=== PATIENT | male | born 1975 | race Caucasian/White ===

== ENCOUNTER → 2017-07-20 | Outpatient (CLI) | payer OTHER ==
[~2017-07-20] MED LIST: ALLERGY10 M2 PO; ALLOPURINOL 10100 M1 PO; ALLOPURINOL 10100 M3 PO; AUGMENTIN 875875 M1; CENTRUM SILVER1 EAC2 PO; CIPROFLOXACIN500 M1 PO; DETROL LA4 MG; DOXYCYCLINE 10100 MG PO; FLOMAX PO; HYDROCHLOROTHIA25 M1 PO; HYDROCODON-ACE1 EAC5; HYDROCODONE-AP1 EAC6 PO; KEFLEX500 MG PO; LORTAB 5 MG/5001 TA1 PO; MULTIPLE VITAM1 EAC1 PO; ONDANSETRON HCL4 M2 PO; PERCOCET 5-3251 EACH PO; PERCOCET 7.5-31 EACH PO; PHENERGAN 25 MG25 MG PO; PREDNISONE 10 M10 MG PO; PREDNISONE 20 M20 M1 PO; ULTRAM 50MG TAB50 MG PO; VITAMIN C100 M1 PO; ZANTAC 150MG T150 M1 PO; ZOFRAN4 MG PO
[2017-07-22 03:14] LABS: GLYCOHEMOGLOBIN (HGB A1C) 5.2 % (4.8-5.6)
== END ==
LOC: M.LAB 15:36
PROVIDERS: Family Medicine
DX: I10 Essential (primary) hypertension (principal); K76.0 Fatty (change of) liver, not elsewhere classified; R53.83 Other fatigue; R00.1 Bradycardia, unspecified

== ENCOUNTER → 2017-11-18 | Outpatient (CLI) | payer OTHER ==
[2017-11-18 16:27] LABS: CREATININE 1.2 mg/dL (0.6-1.3)
== END ==
LOC: M.LAB 14:00 → M.CT 17:00
PROVIDERS: Nurse Practitioner Family
DX: C64.9 Malignant neoplasm of unspecified kidney, except renal pelvis (principal); K86.9 Disease of pancreas, unspecified; K76.0 Fatty (change of) liver, not elsewhere classified; Z98.890 Other specified postprocedural states

== ENCOUNTER 2017-12-02 12:29 | Emergency (ER) | payer OTHER ==
[~2017-12-02] VITALS: Ht 188 cm; Wt 154.2 kg
[~2017-12-02 12:29] MED LIST changes: -HYDROCODONE-AP1 EAC6 PO
[2017-12-02 13:06] LABS: HEMATOCRIT 44.3 % (42.0-52.0); HEMOGLOBIN 15.1 gm/dL (14.0-18.0); MCH 31.4 pg (26.0-34.0); MCV 92.4 fL (80.0-100.0); MPV 8.3 fl. (7.2-11.1); NUCLEATED RBCS 0 /100WBC; PLATELET COUNT* 201 thou/uL (150-400); RBC 4.79 mil/uL (4.50-6.00); RDW-CV 14.1 % (10.5-14.5); WBC 9.9 thou/uL (4.0-11.0)
[2017-12-02 13:12] LABS: ANION GAP 7 mmol/L (7-16); BUN 18 mg/dL (7-18); CALCIUM 8.8 mg/dL (8.5-10.1); CHLORIDE 103 mmol/L (98-107); CO2 30 mmol/L (21-32); CREATININE 1.2 mg/dL (0.6-1.3); GLUCOSE 93 mg/dL (70-99); POTASSIUM 3.8 mmol/L (3.5-5.1); SODIUM 140 mmol/L (136-145)
[2017-12-02 13:19] LABS: ALBUMIN 3.9 g/dL (3.4-5.0); ALKALINE PHOSPHATASE 112 U/L (46-116); LIPASE 107 U/L (73-393); SGOT 36 U/L (15-37); SGPT 64 U/L (30-65); TOTAL PROTEIN 7.6 g/dL (6.4-8.2); TROPONIN-I LEVEL <0.06 ng/mL (<0.06)
[2017-12-02 13:33] LABS: ABSOLUTE LYMPHOCYTES 1.1 thou/uL (0.8-5.3); ABSOLUTE MONOCYTES 0.5 thou/uL (0.0-1.2); ABSOLUTE NEUTROPHILS 8.3 thou/uL (1.6-8.1)
[2017-12-02 13:34] LABS: PLATELET ESTIMATE ADEQUATE
[2017-12-02] MEDS ORDERED: HYDROCODONE-AP1 EAC6 PO (13:58)
[2017-12-02 14:11] VITALS: BP 117/63
--- NOTE | 2017-12-05 11:27 | EKG ---
[place] [address] ELECTROCARDIOGRAM REPORT Name: KIMBERLYPANROSHAN 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
== END 2017-12-02 14:12 | disposition home or self-care (01) ==
LOC: M.ERS 12:29
PROVIDERS: Emergency Medicine Emergency Medical Services
DX: R10.13 Epigastric pain (principal); E80.7 Disorder of bilirubin metabolism, unspecified; R19.7 Diarrhea, unspecified; G47.30 Sleep apnea, unspecified; M10.9 Gout, unspecified; K21.9 Gastro-esophageal reflux disease without esophagitis; Z90.49 Acquired absence of other specified parts of digestive tract; Z87.442 Personal history of urinary calculi; Z85.528 Personal history of other malignant neoplasm of kidney; Z85.07 Personal history of malignant neoplasm of pancreas; Z91.041 Radiographic dye allergy status; Z91.012 Allergy to eggs

== ENCOUNTER → 2018-01-24 | Outpatient (CLI) | payer OTHER ==
[~2018-01-24] MED LIST changes: +HYDROCODONE-AP1 EAC6 PO
[2018-01-24 13:59] LABS: HEMATOCRIT 45.6 % (42.0-52.0); HEMOGLOBIN 15.5 gm/dL (14.0-18.0); MCH 31.2 pg (26.0-34.0); MCHC 33.9 g/dL (28.0-37.0); MCV 92.1 fL (80.0-100.0); MPV 8.7 fl. (7.2-11.1); RBC 4.95 mil/uL (4.50-6.00); WBC 10.5 thou/uL (4.0-11.0)
[2018-01-24 14:09] LABS: ALBUMIN 4.2 g/dL (3.4-5.0); CALCIUM 9.3 mg/dL (8.5-10.1); CREATININE 1.1 mg/dL (0.6-1.3); POTASSIUM 3.2 mmol/L (3.5-5.1); TOTAL BILIRUBIN 1.1 mg/dL (<0.1-1.0); TOTAL PROTEIN 8.1 g/dL (6.4-8.2)
[2018-01-24 14:12] LABS: APTT 28.5 Seconds (25.0-31.3); INR 1.1; PROTIME 10.6 Seconds (9.20-11.50)
== END ==
LOC: M.LAB 13:04
PROVIDERS: Surgery
DX: Z01.818 Encounter for other preprocedural examination (principal); K86.2 Cyst of pancreas; R79.89 Other specified abnormal findings of blood chemistry; I10 Essential (primary) hypertension; G47.33 Obstructive sleep apnea (adult) (pediatric)

== ENCOUNTER → 2018-10-27 | Outpatient (CLI) | payer OTHER ==
[2018-10-27 06:37] LABS: ABSOLUTE BASOPHILS 0.1 thou/uL (0.0-0.2); ABSOLUTE EOSINOPHILS 0.2 thou/uL (0.0-0.7); ABSOLUTE LYMPHOCYTES 2.7 thou/uL (0.8-5.3); ABSOLUTE MONOCYTES 1.6 thou/uL (0.0-1.2); ABSOLUTE NEUTROPHILS 7.8 thou/uL (1.6-8.1); BASOPHILS 0.8 %; EOSINOPHILS 1.7 %; HEMATOCRIT 45.9 % (42.0-52.0); HEMOGLOBIN 15.2 gm/dL (14.0-18.0); LYMPHOCYTES 21.9 %; MCH 30.7 pg (26.0-34.0); MCV 92.9 fL (80.0-100.0); MONOCYTES 12.6 %; MPV 7.9 fl. (7.2-11.1); NUCLEATED RBCS 0 /100WBC; PLATELET COUNT* 446 thou/uL (150-400); RBC 4.94 mil/uL (4.50-6.00); RDW-CV 14.4 % (10.5-14.5); WBC 12.3 thou/uL (4.0-11.0)
[2018-10-27 06:42] LABS: ALBUMIN 3.9 g/dL (3.4-5.0); ALKALINE PHOSPHATASE 171 U/L (46-116); ANION GAP 10 mmol/L (7-16); BUN 20 mg/dL (7-18); CALCIUM 9.3 mg/dL (8.5-10.1); CHLORIDE 103 mmol/L (98-107); CHOLESTEROL 139 mg/dL (<200); CO2 26 mmol/L (21-32); CREATININE 1.1 mg/dL (0.6-1.3); GLUCOSE 126 mg/dL (70-99); HDL CHOLESTEROL 37 mg/dL (>40); LDL CHOLESTEROL 76 mg/dL (<100); POTASSIUM 3.9 mmol/L (3.5-5.1); SGOT 24 U/L (15-37); SGPT 39 U/L (30-65); SODIUM 139 mmol/L (136-145); TC:HDL 3.8 Ratio (Not establshd); TOTAL BILIRUBIN 0.6 mg/dL (<0.1-1.0); TOTAL PROTEIN 7.8 g/dL (6.4-8.2); TRIGLYCERIDE 134 mg/dL (<150); VLDL 27 mg/dL (<40)
[2018-10-27 06:44] LABS: SERUM ASSESSMENT Clear
[2018-10-28 02:06] LABS: GLYCOHEMOGLOBIN (HGB A1C) 6.2 % (4.8-5.6)
== END ==
LOC: M.LAB 06:08
PROVIDERS: Nurse Practitioner Family
DX: Z00.01 Encounter for general adult medical examination with abnormal findings (principal); K86.2 Cyst of pancreas; R53.83 Other fatigue; I10 Essential (primary) hypertension; K76.0 Fatty (change of) liver, not elsewhere classified

== ENCOUNTER → 2019-03-06 | Outpatient (CLI) | payer OTHER ==
[2019-03-06 19:02] LABS: HEMATOCRIT 43.9 % (42.0-52.0); MCH 32.1 pg (26.0-34.0); MCHC 34.2 g/dL (28.0-37.0); MCV 93.6 fL (80.0-100.0); MPV 7.8 fl. (7.2-11.1); RBC 4.69 mil/uL (4.50-6.00); WBC 14.7 thou/uL (4.0-11.0)
[2019-03-06 19:15] LABS: ALBUMIN 4.3 g/dL (3.4-5.0); CALCIUM 9.5 mg/dL (8.5-10.1); CREATININE 1.2 mg/dL (0.6-1.3); POTASSIUM 3.4 mmol/L (3.5-5.1); TOTAL BILIRUBIN 0.9 mg/dL (<0.1-1.0)
[2019-03-07 23:08] LABS: GLYCOHEMOGLOBIN (HGB A1C) 6.5 % (4.8-5.6)
== END ==
LOC: M.LAB 18:19
PROVIDERS: Nurse Practitioner Family
DX: I10 Essential (primary) hypertension (principal); R53.83 Other fatigue; R73.09 Other abnormal glucose

== ENCOUNTER → 2019-03-26 | Outpatient (CLI) | payer OTHER | LOC: M.CT 15:15 | DX: K43.2 Incisional hernia without obstruction or gangrene (principal); K43.9 Ventral hernia without obstruction or gangrene; K42.9 Umbilical hernia without obstruction or gangrene; N20.0 Calculus of kidney; Z90.49 Acquired absence of other specified parts of digestive tract; Z90.5 Acquired absence of kidney; Z90.81 Acquired absence of spleen ==

== ENCOUNTER → 2019-11-02 | Outpatient (CLI) | payer OTHER ==
[2019-11-02 11:05] LABS: ALBUMIN 4.1 g/dL (3.4-5.0); CALCIUM 9.1 mg/dL (8.5-10.1); CREATININE 1.1 mg/dL (0.6-1.3); TOTAL BILIRUBIN 1.1 mg/dL (<0.1-1.0); TOTAL PROTEIN 7.7 g/dL (6.4-8.2)
[2019-11-03 02:11] LABS: GLYCOHEMOGLOBIN (HGB A1C) 5.8 % (4.8-5.6)
== END ==
LOC: M.LAB 10:38
PROVIDERS: Nurse Practitioner Family
DX: I10 Essential (primary) hypertension (principal); K76.0 Fatty (change of) liver, not elsewhere classified; E11.65 Type 2 diabetes mellitus with hyperglycemia

== ENCOUNTER → 2019-11-28 | Outpatient (CLI) | payer OTHER | LOC: M.CT 07:16 | PROVIDERS: ATTEND Family Medicine | DX: K42.9 Umbilical hernia without obstruction or gangrene (principal); K43.2 Incisional hernia without obstruction or gangrene; I70.0 Atherosclerosis of aorta; R19.5 Other fecal abnormalities ==

== ENCOUNTER → 2019-11-29 | Outpatient (CLI) | payer OTHER ==
[2019-11-29 11:21] LABS: HEMATOCRIT 45.2 % (42.0-52.0); HEMOGLOBIN 15.7 gm/dL (14.0-18.0); MCH 32.6 pg (26.0-34.0); MCHC 34.8 g/dL (28.0-37.0); MCV 93.9 fL (80.0-100.0); MPV 7.5 fl. (7.2-11.1); NUCLEATED RBCS 0 /100WBC; PLATELET COUNT* 403 thou/uL (150-400); RBC 4.81 mil/uL (4.50-6.00); RDW-CV 14.1 % (10.5-14.5); WBC 27.2 thou/uL (4.0-11.0)
[2019-11-29 12:02] LABS: ABSOLUTE LYMPHOCYTES 5.4 thou/uL (0.8-5.3); ABSOLUTE MONOCYTES 1.6 thou/uL (0.0-1.2); ABSOLUTE NEUTROPHILS 20.1 thou/uL (1.6-8.1); PLATELET ESTIMATE ADEQUATE
== END ==
LOC: M.LAB 11:06
PROVIDERS: ATTEND Nurse Practitioner Family
DX: R50.9 Fever, unspecified (principal); J02.9 Acute pharyngitis, unspecified; R53.83 Other fatigue; E11.65 Type 2 diabetes mellitus with hyperglycemia; Z20.828 Contact with and (suspected) exposure to other viral communicable diseases

== ENCOUNTER → 2019-12-10 | Outpatient (CLI) | payer OTHER ==
[2019-12-10 16:17] LABS: ABSOLUTE BASOPHILS 0.2 thou/uL (0.0-0.2); ABSOLUTE EOSINOPHILS 0.2 thou/uL (0.0-0.7); ABSOLUTE LYMPHOCYTES 5.2 thou/uL (0.8-5.3); ABSOLUTE MONOCYTES 1.8 thou/uL (0.0-1.2); ABSOLUTE NEUTROPHILS 8.9 thou/uL (1.6-8.1); BASOPHILS 1.1 %; EOSINOPHILS 1.1 %; HEMATOCRIT 43.7 % (42.0-52.0); HEMOGLOBIN 15.2 gm/dL (14.0-18.0); MCH 32.9 pg (26.0-34.0); MCHC 34.8 g/dL (28.0-37.0); MCV 94.4 fL (80.0-100.0); MONOCYTES 10.9 %; MPV 7.1 fl. (7.2-11.1); NUCLEATED RBCS 0 /100WBC; PLATELET COUNT* 480 thou/uL (150-400); POLYS 54.9 %; RBC 4.63 mil/uL (4.50-6.00); RDW-CV 14.2 % (10.5-14.5); WBC 16.2 thou/uL (4.0-11.0)
== END ==
LOC: M.LAB 16:02
PROVIDERS: ATTEND Nurse Practitioner Family
DX: D72.829 Elevated white blood cell count, unspecified (principal); R53.83 Other fatigue

== ENCOUNTER → 2020-01-03 | Outpatient (CLI) | payer OTHER ==
[2020-01-03 12:59] LABS: ABSOLUTE BASOPHILS 0.2 thou/uL (0.0-0.2); ABSOLUTE EOSINOPHILS 0.3 thou/uL (0.0-0.7); ABSOLUTE LYMPHOCYTES 4.7 thou/uL (0.8-5.3); ABSOLUTE MONOCYTES 1.4 thou/uL (0.0-1.2); ABSOLUTE NEUTROPHILS 7.6 thou/uL (1.6-8.1); BASOPHILS 1.4 %; HEMATOCRIT 44.5 % (42.0-52.0); HEMOGLOBIN 15.4 gm/dL (14.0-18.0); LYMPHOCYTES 33.2 %; MCH 33.1 pg (26.0-34.0); MCHC 34.6 g/dL (28.0-37.0); MCV 95.7 fL (80.0-100.0); MONOCYTES 10.1 %; MPV 7.2 fl. (7.2-11.1); NUCLEATED RBCS 0 /100WBC; PLATELET COUNT* 417 thou/uL (150-400); POLYS 53.3 %; RBC 4.65 mil/uL (4.50-6.00); RDW-CV 14.4 % (10.5-14.5); WBC 14.3 thou/uL (4.0-11.0)
== END ==
LOC: M.LAB 12:15
PROVIDERS: ATTEND Nurse Practitioner Family
DX: D72.829 Elevated white blood cell count, unspecified (principal); R53.83 Other fatigue

== ENCOUNTER 2020-08-17 22:44 | Inpatient (IN) | payer OTHER ==
[~2020-08-17] VITALS: Ht 188 cm; Wt 175.7 kg
[2020-08-17] MEDS ORDERED: PEPCID20 MG (22:59)
[2020-08-17] MEDS ORDERED: LISINOPRIL20 MG (22:59)
[2020-08-17] MEDS ORDERED: CHILDREN'S ASPI81 M1 (22:59)
[2020-08-17] MEDS ORDERED: FLONASE 0.05%50 MCG (23:00)
[2020-08-17] MEDS ORDERED: AUGMENTIN 875-1 EACH (23:00)
[2020-08-17] MEDS ORDERED: GLUMETZA1000 (23:00)
[2020-08-17 23:06] VITALS: BP 175/97
[2020-08-17 23:56] LABS: ABSOLUTE BASOPHILS 0.1 thou/uL (0.0-0.2); ABSOLUTE LYMPHOCYTES 3.5 thou/uL (0.8-5.3); ABSOLUTE MONOCYTES 1.2 thou/uL (0.0-1.2); ABSOLUTE NEUTROPHILS 5.4 thou/uL (1.6-8.1); BASOPHILS 0.7 %; EOSINOPHILS 0.3 %; HEMATOCRIT 44.5 % (42.0-52.0); LYMPHOCYTES 34.5 %; MCH 32.2 pg (26.0-34.0); MCHC 33.6 g/dL (28.0-37.0); MCV 95.8 fL (80.0-100.0); MONOCYTES 11.8 %; MPV 7.2 fl. (7.2-11.1); NUCLEATED RBCS 0 /100WBC; PLATELET COUNT* 386 thou/uL (150-400); POLYS 52.7 %; RBC 4.65 mil/uL (4.50-6.00); RDW-CV 13.9 % (10.5-14.5); WBC 10.2 thou/uL (4.0-11.0)
[2020-08-18] LABS: INFLUENZA A ANTIGEN Negative (Negative); INFLUENZA B ANTIGEN Negative (Negative)
[2020-08-18 00:07] LABS: CALCIUM 9.1 mg/dL (8.5-10.1); POTASSIUM 3.3 mmol/L (3.5-5.1)
[2020-08-18 00:10] LABS: PROTIME 10.5 Seconds (9.20-11.50)
[2020-08-18 00:21] LABS: ALBUMIN 3.7 g/dL (3.4-5.0); MAGNESIUM 1.9 mg/dL (1.8-2.4); TOTAL BILIRUBIN 0.7 mg/dL (<0.1-1.0); TOTAL PROTEIN 7.4 g/dL (6.4-8.2)
[2020-08-18 00:50] LABS: URINE BILIRUBIN NEGATIVE (Negative); URINE BLOOD NEGATIVE (Negative); URINE CLARITY CLEAR; URINE COLOR YELLOW; URINE GLUCOSE-RANDOM NEGATIVE (Negative); URINE KETONES NEGATIVE (Negative); URINE LEUKOCYTES-REFLEX NEGATIVE (Negative); URINE NITRITE-REFLEX NEGATIVE (Negative); URINE PROTEIN TRACE (Negative); URINE SPECIFIC GRAVITY >= 1.030 (1.005-1.030); URINE UROBILINOGEN 0.2 E.U./dl (0.2-1.0)
[2020-08-18 03:35] VITALS: BP 167/94
[2020-08-18 08:00] VITALS: BP 187/100
--- NOTE | 2020-08-18 11:14 | EKG ---
[place] [address] ELECTROCARDIOGRAM REPORT Name: KIMBERLYPANROSHAN Room: [address] ADM IN [facility].#: [id number] Admission: 08/18/20 Attend Phys: Melany Stone, Discharge: Date of : 75 Date of Service: 08/17/20 2303 Report #: [id number] THIS REPORT FOR: //name// [facility] ED Test Date: 2020-08-17 Test Time: 23:03:48 Pat Name: ROSHAN BECERRA Department: Room: [facility] Gender: M Patient Access Coordinator: KIANNA : 1975 Requested By: María Benites Order Number: [id number] MD: Brent Del Rio Measurements Intervals [place] Rate: 75 P: 26 NE: 176 QRS: -10 QRSD: 107 T: 54 QT: 374 QTc: 418 Interpretive Statements Sinus rhythm septal q waves Compared to ECG 12/02/2017 14:00:52 No significant changes Electronically Signed On 08-18-2020 11:13:57 RADIATION ONCOLOGIST by Brent Del Rio [email or web address] <ELECTRONICALLY SIGNED> By: Brent Del Rio MD, FAC 08/18/20 1113 02 02 Brent Del Rio MD, [facility] /EPI
[2020-08-18 12:41] VITALS: BP 194/94
[2020-08-18 13:41] LABS: CALCIUM 8.9 mg/dL (8.5-10.1); POTASSIUM 3.7 mmol/L (3.5-5.1)
[2020-08-18 13:45] LABS: MAGNESIUM 1.9 mg/dL (1.8-2.4); PHOSPHORUS* 1.6 mg/dL (2.5-4.9)
[2020-08-18 19:30] VITALS: BP 177/69
[2020-08-18 23:35] VITALS: BP 179/87
[2020-08-19 04:11] VITALS: BP 183/82
[2020-08-19 07:03] LABS: ALBUMIN 3.4 g/dL (3.4-5.0); CALCIUM 8.7 mg/dL (8.5-10.1); POTASSIUM 3.9 mmol/L (3.5-5.1); TOTAL BILIRUBIN 0.6 mg/dL (<0.1-1.0); TOTAL PROTEIN 7.1 g/dL (6.4-8.2)
[2020-08-19 07:54] LABS: ABSOLUTE BASOPHILS 0.2 thou/uL (0.0-0.2); ABSOLUTE LYMPHOCYTES 4.3 thou/uL (0.8-5.3); ABSOLUTE MONOCYTES 1.9 thou/uL (0.0-1.2); ABSOLUTE NEUTROPHILS 11.9 thou/uL (1.6-8.1); HEMATOCRIT 47.3 % (42.0-52.0); HEMOGLOBIN 15.9 gm/dL (14.0-18.0); LYMPHOCYTES 23.5 %; MCH 32.3 pg (26.0-34.0); MCHC 33.5 g/dL (28.0-37.0); MCV 96.3 fL (80.0-100.0); MONOCYTES 10.4 %; MPV 7.2 fl. (7.2-11.1); NUCLEATED RBCS 0 /100WBC; PLATELET COUNT* 436 thou/uL (150-400); POLYS 65.1 %; RBC 4.91 mil/uL (4.50-6.00); RDW-CV 14.2 % (10.5-14.5); WBC 18.3 thou/uL (4.0-11.0)
[2020-08-19 08:00] VITALS: BP 164/88
[2020-08-19 12:00] VITALS: BP 149/90
--- NOTE | 2020-08-19 16:36 | CON ---
[address] [address] CONSULTATION Name: ROSHAN BECERRA Room: [address] IN M.R.#: [id number] Admission: 08/18/20 Attend Phys: Melany Stone MD Discharge: Date of : 75 Report #: [id number] THIS REPORT FOR: cc: Cherie Mendez Russell J. DO ~ Tyson Bourne MD DATE OF SERVICE: 08/19/2020 REQUESTING PHYSICIAN: Moises Edwards MD INDICATION FOR CONSULTATION: COVID-19. HISTORY OF PRESENT ILLNESS: This is a 45-year-old gentleman, past medical history includes a history of very severe obstructive sleep apnea. Incidentally, I had read his sleep study back in 2014, which shows an apnea-hypopnea index severely increased at 86. Supine apnea-hypopnea index is even worse at 135. He is a lifetime nonsmoker. The patient is now admitted with respiratory complaints. He has had increase in shortness of breath. There has been cough, there has only been small amounts of sputum production. He does report having had fever and chills. There is mild increase in swelling of lower extremities. He also has had nasal congestion as well as headache and vague chest discomfort as well. With these complaints, the patient was initially treated as an outpatient with doxycycline. He took it for 3 days and then last Tuesday after another appointment, this was switched over to Augmentin. He was taking Augmentin until admission, which is 2 days ago. 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 She had noticed that patient's O2 saturation dropping to around 87% on minimal ambulation, which is the reason he was brought to the Emergency Room. Currently, the patient is on 2 liters nasal cannula. His O2 saturation is 93-94%. He reports some improvement in his complaints compared with admission and no new complaints. He is using his own CPAP at night. He has had disturbed sleep at night as well as sleepiness during the day. These symptoms are improved with regular use of CPAP. He does not report a marked recent change in these. REVIEW OF SYSTEMS: The patient's review of systems for 12 points is negative except as mentioned above. PAST MEDICAL HISTORY: Very severe obstructive sleep apnea with an apnea-hypopnea index of 86. Supine apnea-hypopnea index 135 back in 2014. At that time, he was prescribed a CPAP of 9 cm of water[place] [address] CONSULTATION Name: ROSHAN BECERRA Room: [address] IN [facility]#: [id number] Admission: 08/18/20 Attend Phys: Melany Stone MD Discharge: Date of : 75 Report #: [id number] pancreas requiring a Whipple's procedure, partial removal of the pancreas, status post cholecystectomy as well as splenectomy. The patient had a separate renal malignancy as well and therefore is also status post right nephrectomy, kidney stones with stent placement, I understand this to be on the left side. Gout, GERD and wisdom tooth extraction. SOCIAL HISTORY: Lifetime nonsmoker. No known history of heavy alcohol use or illegal drug use. CURRENT MEDICATIONS: List in [employer] reviewed. HOME MEDICATIONS: List in [employer] reviewed. ALLERGIES: EGG AND CONTRAST DYE ARE MENTIONED ALLERGIES. FAMILY HISTORY: There is no pertinent family history. PHYSICAL EXAMINATION: GENERAL: He is alert, awake and oriented, does not appear to be in any distress at this time. VITAL SIGNS: Has a pulse of 60 and a blood pressure of 149/90. He is saturating 93%. He is on 2 liters nasal cannula, respiratory rate is 16, heart rate is 60. He is afebrile with a temperature of 36.7, body mass index is around 50. HEENT: Head is normocephalic and atraumatic. He appears to have a narrow airway. NECK: Does not show raised JVP, asymmetry, mass or lymph nodes. CHEST: Symmetrical expansion on inspection and palpation. On auscultation, breath sounds are bilaterally equal, decreased. No added sounds. HEART: Regular. There is no murmur. ABDOMEN: Mildly distended, nontender. EXTREMITIES: Lower extremities show trace edema, no calf tenderness. SKIN: Dry and intact. NEUROLOGICAL: Moves all extremities bilaterally equally and spontaneously with no focal deficit identified. IMAGING DATA: The patient's chest x-rays are reviewed. There is atelectasis at bilateral lung bases. There are interstitial infiltrates bilaterally consistent with COVID-19. There is a small radiopaque density in the right middle lobe, which is likely atelectasis; however, a small lobar infiltrate in this region cannot be ruled out. There is a small radiopaque density at the left pleuro-phrenic angle, this is likely a small pleural effusion with atelectasis. A small lobar infiltrate in this region cannot be ruled out either. [address] [address] CONSULTATION Name: ROSHAN BECERRA Room: [address] M.R.#: [id number] Admission: 08/18/20 Attend Phys: Melany Stone MD Discharge: Date of : 75 Report #: [id number] LABORATORY DATA: The patient's lab work is in [employer] and is reviewed. ASSESSMENT AND PLAN: 1. COVID-19. I agree with dexamethasone as currently prescribed at 6 mg daily. I also agree with remdesivir as currently prescribed. Considering the patient's comorbid conditions, I would recommend continuing remdesivir for 5 days total and keeping the patient in the hospital for that duration even if his respiratory status improves and he comes off oxygen. Patient also is noted to be on ivermectin. I do not feel strongly either way about it. I feel that it is okay to administer. I also do not feel strongly either way regarding administration of convalescent plasma, I did not order at this time. We will watch LFTs closely while he is on remdesivir, which as above plan to continue for 5 days total. 2. Pulmonary infiltrates. See discussion regarding chest x-rays as above. In summary, primarily the findings on the chest x-ray are secondary to viral pneumonia and atelectasis. Agree with continuing antibiotics; however, we may be able to cut back soon. See discussion regarding antibiotics already received as an outpatient. One option could be to continue doxycycline as currently prescribed and if he is improving, then consider discontinuing cefdinir tomorrow. We will add a probiotic while he is on the antibiotics. 3. Very severe obstructive sleep apnea. Note that his apnea-hypopnea index is 86, an apnea-hypopnea index greater than 30 is considered to be severe obstructive sleep apnea. Would continue CPAP while asleep. If he worsens, we will have a low threshold of switching this over to a BiPAP. I also discussed with him that it will be important that he sleeps either in the prone position or on his sides. I would recommend strictly avoiding lying supine, even while awake, also recommend continuing ambulation to chair. 4. History of pancreatic malignancy requiring partial pancreatectomy, cholecystectomy and splenectomy. 5. History of renal malignancy, status post right-sided nephrectomy. 6. Morbid obesity/deep venous thrombosis prophylaxis. His D-dimer is not noted to be elevated, but he is high risk for developing thromboembolism. Therefore, I increased his Lovenox doses to 60 mg b.i.d. for deep venous thrombosis prophylaxis. 7. Chronic gastroesophageal reflux disease, he is on a PPI. Thanks for this consultation. <ELECTRONICALLY SIGNED> By: Tyson Bourne MD 08/19/20 1636 1216 [id number] Bourne MD /nt
[2020-08-19 17:07] VITALS: BP 175/95
[2020-08-19 20:00] VITALS: BP 115/63
[2020-08-20 01:34] VITALS: BP 117/69
[2020-08-20 05:49] VITALS: BP 113/65
[2020-08-20 06:38] LABS: ALBUMIN 3.3 g/dL (3.4-5.0); CALCIUM 8.8 mg/dL (8.5-10.1); CREATININE 0.9 mg/dL (0.6-1.3); MAGNESIUM 2.1 mg/dL (1.8-2.4); POTASSIUM 3.8 mmol/L (3.5-5.1); TOTAL BILIRUBIN 0.7 mg/dL (<0.1-1.0); TOTAL PROTEIN 6.8 g/dL (6.4-8.2)
[2020-08-20 08:00] VITALS: BP 142/74
[2020-08-20 12:00] VITALS: BP 148/93
[2020-08-20 17:02] VITALS: BP 174/100
[2020-08-20 20:20] VITALS: BP 145/85
[2020-08-21] VITALS: BP 121/76
[2020-08-21 04:00] VITALS: BP 126/67
[2020-08-21 04:29] LABS: HEMATOCRIT 43.1 % (42.0-52.0); HEMOGLOBIN 14.1 gm/dL (14.0-18.0); MCH 31.4 pg (26.0-34.0); MCHC 32.6 g/dL (28.0-37.0); MCV 96.2 fL (80.0-100.0); MPV 8.1 fl. (7.2-11.1); NUCLEATED RBCS 0 /100WBC; PLATELET COUNT* 450 thou/uL (150-400); RBC 4.48 mil/uL (4.50-6.00); RDW-CV 13.9 % (10.5-14.5); WBC 20.4 thou/uL (4.0-11.0)
[2020-08-21 04:52] LABS: ALBUMIN 3.3 g/dL (3.4-5.0); CALCIUM 8.6 mg/dL (8.5-10.1); CREATININE 0.9 mg/dL (0.6-1.3); POTASSIUM 3.6 mmol/L (3.5-5.1); TOTAL BILIRUBIN 0.5 mg/dL (<0.1-1.0); TOTAL PROTEIN 6.8 g/dL (6.4-8.2)
[2020-08-21 05:49] LABS: ABSOLUTE LYMPHOCYTES 4.9 thou/uL (0.8-5.3); ABSOLUTE MONOCYTES 1.2 thou/uL (0.0-1.2); ABSOLUTE NEUTROPHILS 14.3 thou/uL (1.6-8.1); PLATELET ESTIMATE INCREASED
[2020-08-21 05:50] LABS: ANISOCYTOSIS 1+; POIKILOCYTOSIS 1+
[2020-08-21 09:01] VITALS: BP 162/87
[2020-08-21] MEDS ORDERED: DOXYCYCLINE 10100 MG PO ×2 (09:09→11:59)
[2020-08-21] MEDS ORDERED: ZINC SULFATE50 MG PO ×2 (09:09→11:59)
[2020-08-21] MEDS ORDERED: DEXAMETHASONE 22 M1 PO (09:09)
[2020-08-21] MEDS ORDERED: TESSALON PERLE100 M1 PO ×2 (09:11→11:59)
[2020-08-21] MEDS ORDERED: PROAIR HFA8.5 GM INH ×2 (09:11→11:59)
[2020-08-21 12:18] VITALS: BP 162/87
== END 2020-08-21 13:35 | disposition home or self-care (01) | DRG 177 ==
LOC: M.ERS 22:44 → M.2W 08-18 00:47 → M.TBA-ER 08-18 00:47 → M.2W 08-18 00:47
PROVIDERS: Emergency Medicine; Internal Medicine; Internal Medicine Critical Care Medicine; ADMIT Internal Medicine; ATTEND Internal Medicine
PROC: 5A09357 Assistance with Respiratory Ventilation, Less than 24 Consecutive Hours, Continuous Positive Airway Pressure (ICD-10-PCS; principal; 2020-08-18)
PROC: XW033E5 Introduction of Remdesivir Anti-infective into Peripheral Vein, Percutaneous Approach, New Technology Group 5 (ICD-10-PCS; principal; 2020-08-18)
PROC: B54NZZA Ultrasonography of Left Upper Extremity Veins, Guidance (ICD-10-PCS; 2020-08-18)
PROC: 05HF33Z Insertion of Infusion Device into Left Cephalic Vein, Percutaneous Approach (ICD-10-PCS; 2020-08-18)
PROC: 5A09357 Assistance with Respiratory Ventilation, Less than 24 Consecutive Hours, Continuous Positive Airway Pressure (ICD-10-PCS; 2020-08-19)
PROC: 5A09357 Assistance with Respiratory Ventilation, Less than 24 Consecutive Hours, Continuous Positive Airway Pressure (ICD-10-PCS; 2020-08-20)
PROC: 5A09357 Assistance with Respiratory Ventilation, Less than 24 Consecutive Hours, Continuous Positive Airway Pressure (ICD-10-PCS; 2020-08-21)
DX: U07.1 COVID-19 (principal); J96.01 Acute respiratory failure with hypoxia; J12.82 Pneumonia due to coronavirus disease 2019; Z68.42 Body mass index [BMI] 45.0-49.9, adult; G47.33 Obstructive sleep apnea (adult) (pediatric); E11.9 Type 2 diabetes mellitus without complications; M10.9 Gout, unspecified; E66.01 Morbid (severe) obesity due to excess calories; K21.9 Gastro-esophageal reflux disease without esophagitis; Z90.49 Acquired absence of other specified parts of digestive tract; Z85.528 Personal history of other malignant neoplasm of kidney; Z87.442 Personal history of urinary calculi; Z85.07 Personal history of malignant neoplasm of pancreas; Z79.82 Long term (current) use of aspirin; Z79.899 Other long term (current) drug therapy; Z79.84 Long term (current) use of oral hypoglycemic drugs; Z91.041 Radiographic dye allergy status; Z91.018 Allergy to other foods